=== PATIENT | female | born 1940 | race Caucasian/White ===

== ENCOUNTER 2018-09-15 12:10 | Outpatient (CLI) | payer MEDICARE, BC ==
[~2018-09-15 12:10] MED LIST: ASPI-496 PO; HYDR-3245 PO; LEVO25TA2 PO; PRAS5TAB3 PO; PRED1TAB PO; REGADENOSON 0.4 MG/5 ML SYRINGE ONE; ROSU20TA2 PO; [UNRECOGNIZED DRUG - OTHER]
[2018-09-16] MEDS ORDERED: DENO60DI IM (11:07)
[2018-09-16] MEDS ORDERED: [UNRECOGNIZED DRUG - CODE] PO (11:07)
[2018-09-16] MEDS ORDERED: [UNRECOGNIZED DRUG - OTHER] (11:07)
[2018-09-16] MEDS ORDERED: CHOL500045 PO (11:07)
[2018-09-16] MEDS ORDERED: LEVO112T2 PO (11:07)
[2018-09-16] MEDS ORDERED: GABA300C10 PO (11:07)
[2018-09-16] MEDS ORDERED: FOLI-17 PO (11:07)
[2018-09-16] MEDS ORDERED: VIT1CAPS42 PO (11:07)
== END 2018-09-15 23:59 | disposition home or self-care (01) ==
LOC: CFH 12:10
PROVIDERS: ATTEND Internal Medicine Cardiovascular Disease
DX: Z01.810 Encounter for preprocedural cardiovascular examination (principal); I42.9 Cardiomyopathy, unspecified
CPT/HCPCS: 78452; 93017; A9502; J2785

== ENCOUNTER → 2018-09-16 | Outpatient (CLI) | payer MEDICARE, BC ==
[~2018-09-16] MED LIST changes: +CHOL500045 PO; +DENO60DI IM; +FOLI-17 PO; +GABA300C10 PO; +LEVO112T2 PO; -REGADENOSON 0.4 MG/5 ML SYRINGE ONE; +VIT1CAPS42 PO; +[UNRECOGNIZED DRUG - CODE] PO; +[UNRECOGNIZED DRUG - OTHER]
== END | disposition home or self-care (01) ==
LOC: STAR 09:58
PROVIDERS: ATTEND Orthopaedic Surgery
DX: Z01.818 Encounter for other preprocedural examination (principal); M17.12 Unilateral primary osteoarthritis, left knee; J45.909 Unspecified asthma, uncomplicated; M81.0 Age-related osteoporosis without current pathological fracture
CPT/HCPCS: 87081; 87147; 93005

== ENCOUNTER 2018-09-20 05:37 | Inpatient (IN) | payer MEDICARE, BC ==
[~2018-09-20] VITALS: Ht 152.4 cm; Wt 67.8 kg
[2018-09-20] MEDS ORDERED: LACTATED RINGERS 1,000 ML IV SCH (06:13)
[2018-09-20] MEDS ORDERED: TRANEXAMIC ACID 100 MG/ML, 10ML ONE (06:22)
[2018-09-20] MEDS ORDERED: KETOROLAC 60 MG/2 ML ONE (06:22)
[2018-09-20] MEDS ORDERED: VANCOMYCIN 1,000 MG ONE (06:22)
[2018-09-20] MEDS ORDERED: ROPIvacaine/PF 0.2%, 20 ML ONE (06:22)
[2018-09-20] MEDS ORDERED: SODIUM CHLORIDE 0.9% 50 ML ONE (06:22)
[2018-09-20] MEDS ORDERED: EPINEPHRINE 1 MG/ML, 1ML ONE (06:23)
[2018-09-20] MEDS ORDERED: MIDAZOLAM 1 MG/ML, 2ML ONE (06:49)
[2018-09-20] MEDS ORDERED: FENTANYL PF 100 MCG/2ML ONE ×2 (07:08→07:59)
[2018-09-20] MEDS ORDERED: CEFAZOLIN 1,000 MG ONE (07:09)
[2018-09-20] MEDS ORDERED: ONDANSETRON 2MG/ML, 2ML ONE (07:09)
[2018-09-20] MEDS ORDERED: PROPOFOL 10 MG/ML, 20ML ONE (07:09)
[2018-09-20] MEDS ORDERED: OXYcodone 5 MG/5 ML ORAL.SOL UDC PO PRN (08:00)
[2018-09-20] MEDS ORDERED: LORazepam 2 MG/ML, 1ML IVPush PRN (08:00)
[2018-09-20] MEDS ORDERED: hydrALAzine 20 MG/ML, 1ML IV PRN (08:00)
[2018-09-20] MEDS ORDERED: LABETALOL 5MG/ML, 20ML IV PRN (08:00)
[2018-09-20] MEDS ORDERED: METOCLOPRAMIDE 5 MG/ML, 2ML IV PRN (08:00)
[2018-09-20] MEDS ORDERED: FENTANYL PF 100 MCG/2ML IV PRN (08:00)
[2018-09-20] MEDS ORDERED: ALBUTEROL/IPRATROPIUM 2.5MG/0.5MG, 3 ML NPPB PRN (08:00)
[2018-09-20] MEDS ORDERED: MEPERIDINE/PF 25MG/0.5ML IVPush PRN (08:00)
[2018-09-20] MEDS ORDERED: ACETAMINOPHEN 325 MG TABLET PO PRN (08:00)
[2018-09-20] MEDS ORDERED: METOPROLOL 1 MG/ML, 5ML IV PRN (08:00)
[2018-09-20] MEDS: SODIUM CHLORIDE 0.9% 1,000 ML IV SCH ×2 (08:47→16:47)
[2018-09-20] MEDS ORDERED: ACETAMINOPHEN 650 MG/20.3 ML UDC ONE (08:51)
[2018-09-20] MEDS ORDERED: OXYcodone 5 MG/5 ML ORAL.SOL UDC ONE (08:52)
[2018-09-20] MEDS ORDERED: HYDROmorphone 2 MG/ML, 1ML ONE (08:52)
[2018-09-20] MEDS: HYDROmorphone 2 MG/ML, 1ML IVPush PRN ×4 (08:56→09:32)
[2018-09-20] MEDS ORDERED: DIPHENHYDRAMINE 25 MG CAPSULE PO PRN (09:00)
[2018-09-20] MEDS ORDERED: PROMETHAZINE 25 MG/ML, 1ML IM PRN (09:00)
[2018-09-20] MEDS ORDERED: MAGNESIUM HYDROXIDE 8%, 30ML UDC PO PRN (09:00)
[2018-09-20] MEDS ORDERED: ACETAMINOPHEN 650 MG/20.3 ML UDC PO PRN (09:00)
[2018-09-20] MEDS ORDERED: ALUMINUM/MAG/SIMETHICONE 30 ML UDC PO PRN (09:00)
[2018-09-20] MEDS ORDERED: HYDROmorphone 2 MG/ML, 1ML IVPush PRN (09:00)
[2018-09-20] MEDS ORDERED: BISACODYL 10 MG SUPP PR PRN (09:00)
[2018-09-20] MEDS ORDERED: DIAZEPAM 5 MG TABLET PO PRN (09:00)
[2018-09-20] MEDS ORDERED: ONDANSETRON 2MG/ML, 2ML IV PRN (09:00)
[2018-09-20] MEDS ORDERED: SENNA/DOCUSATE TABLET PO PRN (09:00)
[2018-09-20] MEDS ORDERED: ZOLPIDEM 5MG TABLET PO PRN (09:00)
[2018-09-20] MEDS ORDERED: HYDROcodone/APAP 10/325 MG TABLET PO PRN (09:00)
[2018-09-20] MEDS ORDERED: PROMETHAZINE 12.5 MG SUPP PR PRN (09:00)
[2018-09-20] MEDS ORDERED: ONDANSETRON 4 MG TABLET PO PRN (09:00)
[2018-09-20] MEDS ORDERED: TRANEXAMIC ACID 1,000 MG in SODIUM CHLORIDE 0.9% 100 ML IVPB ONE (09:15)
[2018-09-20] MEDS ORDERED: METHOTREXATE PO SCH (10:00)
[2018-09-20] MEDS ORDERED: DENOSUMAB 60 MG IM SCH (10:00)
[2018-09-20] MEDS ORDERED: DEXAMETHASONE 4 MG/ML, 1ML IVPush ONE (11:00)
[2018-09-20] MEDS: DOCUSATE 100 MG CAPSULE PO SCH ×2 (12:07→21:22)
[2018-09-20] MEDS: MULTIVITAMINS/MINERALS TABLET PO SCH (12:07)
[2018-09-20] MEDS: FERROUS SULFATE 325 MG TABLET PO SCH ×2 (12:07→17:44)
[2018-09-20] MEDS: CALCIUM/VITAMIN D3 250-125 TABLET PO SCH ×2 (12:08→17:44)
[2018-09-20] MEDS: ASCORBIC ACID 500 MG TABLET PO SCH (12:08)
[2018-09-20] MEDS: HYDROcodone/APAP 10/325 MG TABLET PO PRN ×3 (13:30→22:35)
[2018-09-20 14:50] VITALS: BP 125/65
[2018-09-20] MEDS: CEFAZOLIN PMX 1GM/50ML 50 ML IVPB SCH ×2 (15:02→22:35)
[2018-09-20] MEDS: ASPIRIN 81 MG TABLET EC PO SCH (17:44)
[2018-09-20 19:45] VITALS: BP 138/75
[2018-09-20] MEDS: ATORVASTATIN 80 MG TABLET PO SCH (21:22)
[2018-09-20] MEDS: GABAPENTIN 300 MG CAPSULE PO SCH (21:23)
[2018-09-21] MEDS: SODIUM CHLORIDE 0.9% 1,000 ML IV SCH ×3 (00:47→16:47)
[2018-09-21 02:18] VITALS: BP 121/63
[2018-09-21] MEDS: HYDROcodone/APAP 10/325 MG TABLET PO PRN ×5 (02:40→20:17)
[2018-09-21] MEDS: LEVOTHYROXINE 112 MCG TABLET PO SCH (06:40)
[2018-09-21 07:45] VITALS: BP 118/63
[2018-09-21] MEDS: CALCIUM/VITAMIN D3 250-125 TABLET PO SCH ×3 (09:40→17:09)
[2018-09-21] MEDS: FERROUS SULFATE 325 MG TABLET PO SCH ×2 (09:41→17:09)
[2018-09-21] MEDS: MULTIVITAMINS/MINERALS TABLET PO SCH (09:41)
[2018-09-21] MEDS: DOCUSATE 100 MG CAPSULE PO SCH ×2 (09:41→20:17)
[2018-09-21] MEDS: GABAPENTIN 300 MG CAPSULE PO SCH ×2 (09:41→20:17)
[2018-09-21] MEDS: ASCORBIC ACID 500 MG TABLET PO SCH (09:41)
[2018-09-21 14:14] VITALS: BP 120/67
[2018-09-21] MEDS: ASPIRIN 81 MG TABLET EC PO SCH (17:09)
[2018-09-21 19:49] VITALS: BP 133/74
[2018-09-21] MEDS: ATORVASTATIN 80 MG TABLET PO SCH (20:17)
[2018-09-22] MEDS: SODIUM CHLORIDE 0.9% 1,000 ML IV SCH ×3 (00:47→15:52)
[2018-09-22] MEDS: HYDROcodone/APAP 10/325 MG TABLET PO PRN ×6 (00:57→23:54)
[2018-09-22 01:20] VITALS: BP 144/77
[2018-09-22] MEDS: LEVOTHYROXINE 112 MCG TABLET PO SCH (06:14)
[2018-09-22] MEDS: CALCIUM/VITAMIN D3 250-125 TABLET PO SCH ×3 (08:23→17:06)
[2018-09-22] MEDS: GABAPENTIN 300 MG CAPSULE PO SCH ×2 (08:23→19:35)
[2018-09-22] MEDS: ASCORBIC ACID 500 MG TABLET PO SCH (08:23)
[2018-09-22] MEDS: MULTIVITAMINS/MINERALS TABLET PO SCH (08:23)
[2018-09-22] MEDS: FERROUS SULFATE 325 MG TABLET PO SCH ×2 (08:23→17:06)
[2018-09-22] MEDS: DOCUSATE 100 MG CAPSULE PO SCH ×2 (08:23→19:35)
[2018-09-22 09:40] VITALS: BP 130/76
[2018-09-22 13:04] VITALS: BP 130/71
[2018-09-22] MEDS: ASPIRIN 81 MG TABLET EC PO SCH (17:06)
[2018-09-22 19:05] VITALS: BP 114/62
[2018-09-22] MEDS: ATORVASTATIN 80 MG TABLET PO SCH (19:35)
[2018-09-23] MEDS: SODIUM CHLORIDE 0.9% 1,000 ML IV SCH ×2 (00:47→08:12)
[2018-09-23 01:16] VITALS: BP 103/57
[2018-09-23] MEDS: HYDROcodone/APAP 10/325 MG TABLET PO PRN ×2 (03:46→08:19)
[2018-09-23] MEDS: LEVOTHYROXINE 112 MCG TABLET PO SCH (05:32)
[2018-09-23 07:15] VITALS: BP 96/49
[2018-09-23] MEDS: FERROUS SULFATE 325 MG TABLET PO SCH (08:10)
[2018-09-23] MEDS: MULTIVITAMINS/MINERALS TABLET PO SCH (08:10)
[2018-09-23] MEDS: CALCIUM/VITAMIN D3 250-125 TABLET PO SCH (08:11)
[2018-09-23] MEDS: DOCUSATE 100 MG CAPSULE PO SCH (08:11)
[2018-09-23] MEDS: ASCORBIC ACID 500 MG TABLET PO SCH (08:11)
[2018-09-23] MEDS: GABAPENTIN 300 MG CAPSULE PO SCH (08:12)
[2018-09-23] MEDS ORDERED: HYDR2TAB29 PO (08:48)
[2018-09-23 10:35] VITALS: BP 119/54
== END 2018-09-23 11:07 | disposition home health service (06) | DRG 470 ==
LOC: OUT 05:37 → ORIP 08:47 → 4NOR 10:18 → DCLOUNGE 09-23 10:58
PROVIDERS: ADMIT Orthopaedic Surgery; ATTEND Orthopaedic Surgery
PROC: 0SRD0J9 Replacement of Left Knee Joint with Synthetic Substitute, Cemented, Open Approach (ICD-10-PCS; principal; 2018-09-20 07:30)
DX: M06.9 Rheumatoid arthritis, unspecified (principal); M21.062 Valgus deformity, not elsewhere classified, left knee; M65.9 Synovitis and tenosynovitis, unspecified; Z79.899 Other long term (current) drug therapy
CPT/HCPCS: 36415; 85014; 85018; C1713; G0378; J0171; J0690; J1100; J1170; J1885; J2250; J2405; J2704; J2795; J3010; J3370; C1776; J7120

== ENCOUNTER 2020-10-14 07:56 | Day surgery (SDC) | payer MEDICARE, BC ==
[~2020-10-14] VITALS: Ht 152.4 cm; Wt 57.3 kg
[~2020-10-14 07:56] MED LIST changes: -FOLI-17 PO; +FOLI1TAB32 PO; -HYDR-3245 PO; +HYDR1TAB53 PO; +HYDR2TAB29 PO; -PRED1TAB PO; +PRED1TAB19 PO
[2020-10-14] MEDS ORDERED: Remicade IV (08:32)
[2020-10-14] MEDS ORDERED: NITR0.4T28 SL (08:34)
[2020-10-14 08:36] VITALS: BP 112/54
[2020-10-14] MEDS ORDERED: MIDAZOLAM 1 MG/ML, 5ML ONE (09:12)
[2020-10-14] MEDS ORDERED: FENTANYL PF 100 MCG/2ML ONE ×2 (09:12→12:50)
[2020-10-14] MEDS ORDERED: LIDOCAINE 2%, 20ML ONE ×2 (09:13→12:50)
[2020-10-14 09:24] LABS: MEAN CORPUSCULAR HEMOGLOBIN 27.1 pg (27.0-34.8); MEAN CORPUSCULAR HGB CONC 31.7 g/dL (32.4-35.8); MEAN PLATELET VOLUME 8.4 fL (7.4-10.4); PLATELET COUNT 179 x10^3/uL (130-400); RED BLOOD COUNT 4.35 x10^6/uL (3.82-5.3); RED CELL DISTRIBUTION WIDTH 18.6 % (9.6-15.2)
[2020-10-14 09:35] LABS: INTERNATIONAL NORMALIZED RATIO 1.18 (0.93-1.1); PROTHROMBIN TIME 12.6 Seconds (9.6-11.5)
[2020-10-14 09:38] LABS: MD YES
[2020-10-14 09:39] LABS: ANION GAP 7 mmol/L (5-15); CALCIUM 8.4 mg/dL (8.5-10.1); CHLORIDE 107 mmol/L (98-107); CREATININE 1.41 mg/dL (0.55-1.02)
[2020-10-14 09:41] LABS: <PLATELET ESTIMATE> DECREASED; ANISOCYTOSIS 1+; BAND#(MANUAL) 0.08 x10^3/uL; BANDS%(MANUAL) 1 % (0-7); BASOS#(MANUAL) 0.08 x10^3/uL (0-0.1); BASOS% (MANUAL) 1 % (0-1); EOS#(MANUAL) 0.66 x10^3/uL (0.0-0.4); EOS% (MANUAL) 8 % (1-7); LYMPH#(MANUAL) 1.39 x10^3/uL (1-3.4); LYMPHS% (MANUAL) 17 % (22-44); MONOS#(MANUAL) 1.15 x10^3/uL (0.3-2.7); MONOS% (MANUAL) 14 % (2-9); SEG#(MANUAL) 4.84 x10^3/uL (1.8-6.8); SEGS% (MANUAL) 59 % (42-75); TEAR DROPS 1+
[2020-10-14 09:42] LABS: <PLT MORPHOLOGY> NORMAL PLT MORPH
[2020-10-14] MEDS ORDERED: MIDAZOLAM 1 MG/ML, 2ML ONE (12:51)
[2020-10-14] MEDS ORDERED: NITROGLYCERIN 5 MG/ML, 10ML ONE (12:51)
[2020-10-14] MEDS ORDERED: HEPARIN 1,000 UNITS/ML, 10ML ONE (13:12)
[2020-10-14] MEDS ORDERED: SODIUM CHLORIDE 0.9% 1,000 ML IV SCH (14:00)
== END 2020-10-14 16:04 | disposition home or self-care (01) ==
LOC: CACL 07:56
PROVIDERS: ATTEND Internal Medicine Cardiovascular Disease
DX: R93.1 Abnormal findings on diagnostic imaging of heart and coronary circulation (principal); I25.10 Atherosclerotic heart disease of native coronary artery without angina pectoris; I10 Essential (primary) hypertension; I25.2 Old myocardial infarction; I42.9 Cardiomyopathy, unspecified; E78.5 Hyperlipidemia, unspecified; M06.9 Rheumatoid arthritis, unspecified; E03.9 Hypothyroidism, unspecified; Z79.82 Long term (current) use of aspirin; Z79.890 Hormone replacement therapy; Z79.891 Long term (current) use of opiate analgesic; Z79.899 Other long term (current) drug therapy; Z88.8 Allergy status to other drugs, medicaments and biological substances; Z98.890 Other specified postprocedural states; Z98.61 Coronary angioplasty status
CPT/HCPCS: 36415; 80048; 85025; 85610; 93458; 93571; 99156; C1760; C1769; C1887; C1894; J1644; J2250; J3010; Q9967